=== PATIENT | female | born 1965 | race African-American/Black ===

== ENCOUNTER 2017-08-21 11:38 | Emergency (ER) | payer MEDICAID ==
[~2017-08-21] VITALS: Ht 149.9 cm; Wt 116.5 kg
[~2017-08-21 11:38] MED LIST: LISI-363 PO; METO25 PO
[2017-08-21 11:39] VITALS: BP 193/95; PULSE 84; RESP 18; TEMP 98.5; O2SAT 98
[2017-08-21] MEDS ORDERED: LOSA25TA PO (11:58)
[2017-08-21] MEDS ORDERED: METO25TA3 PO (11:58)
[2017-08-21] MEDS ORDERED: HYDR12.57 PO (11:58)
[2017-08-21 11:59] VITALS: RESP 17; O2SAT 100
[2017-08-21] MEDS ORDERED: SODIUM CHLORIDE 0.9% FLUSH 10 ML FLUSH IVF PRN (12:00)
[2017-08-21] MEDS ORDERED: ASPIRIN 81 MG CHEW TAB PO ONE (12:00)
--- NOTE | 2017-08-21 12:00 | PD ---
HPI Chief Complaint: Hypertension Time Seen by Provider: 11:50 Travel History International Travel<30 days: No Contact w/Intl Traveler<30days: No Traveled to known affect area: No History of Present Illness HPI 52-year-old female presents to emergency department complaining of high blood pressure, headache, and left shoulder discomfort and back pain since last night. Complains of midsternal chest pain occasionally that lasts about 3minutes and then goes away on its own. States she also has dizziness, described as lightheadedness that is constant. Her headache is mainly frontal. Patient has had nausea without vomiting and diarrhea. Patient denies fever, chills, shortness of breath, abdominal pain. Patient denies recent travel, immobilization, surgeries. Patient denies numbness or tingling of extremities. Patient medical history significant for hypertension and "borderline diabetes ". Patient did take her medication today which is metoprolol and losartan for blood pressure. PFSH Past Medical History Heart Rhythm Problems: No Cardiac Catheterization: No Cardiovascular Problems: No (DENIES) High Cholesterol: No Congestive Heart Failure: No Diabetes: No Diminished Hearing: No Hypertension: Yes Immunizations Current: Yes : 7 Para: 5 Miscarriage: 2 Tubal Ligation: Yes Past Surgical History Coronary Artery Bypass Graft: No Social History Alcohol Use: No Tobacco Use: No Substance Use: No Allergies-Medications (Allergen,Severity, Reaction): Coded Allergies: No Known Allergies (Verified Adverse Reaction, Unknown, 08/21/17) Reported Meds & Prescriptions Reported Meds & Active Scripts Active Zofran (Ondansetron HCl) 4 Mg Tab 4 Mg PO Q8HR PRN 7 Days Losartan (Losartan Potassium) 50 Mg Tab 50 Mg PO DAILY Reported Hydrochlorothiazide 12.5 Mg Cap 12.5 Mg PO DAILY Losartan (Losartan Potassium) 25 Mg Tab 12.5 Mg PO DAILY Metoprolol Tartrate 25 Mg Tab 25 Mg PO BID Review of Systems Except as stated in HPI: all other systems reviewed are Neg Physical Exam Narrative GENERAL: Well-developed well-nourished in mild distress SKIN: Focused skin assessment warm/dry. HEAD: Atraumatic. Normocephalic. EYES: Pupils equal and round. No scleral icterus. No injection or drainage. ENT: No nasal bleeding or discharge. Mucous membranes pink and moist. Ear canals mildly erythematous without bulging of tympanic membrane NECK: Trachea midline. No JVD. CARDIOVASCULAR: Regular rate and rhythm. No murmur appreciated. RESPIRATORY: No accessory muscle use. Clear to auscultation. Breath sounds equal bilaterally. GASTROINTESTINAL: Abdomen soft, non-tender, nondistended. Hepatic and splenic margins not palpable. Non-bounding, no masses MUSCULOSKELETAL: No obvious deformities. No clubbing. No cyanosis. No edema. No pulse deficit NEUROLOGICAL: Awake and alert. No obvious cranial nerve deficits. Motor grossly within normal limits. Normal speech. PSYCHIATRIC: Appropriate mood and affect; insight and judgment normal. Data Data Last Documented VS Vital Signs Date Time Temp Pulse Resp B/P (MAP) Pulse Ox O2 Delivery O2 Flow Rate FiO2 08/21/17 16:15 08/21/17 15:45 63 08/21/17 11:59 100 Room Air 08/21/17 11:59 17 08/21/17 11:39 98.5 Orders Orders Electrocardiogram (08/21/17 11:56) Basic Metabolic Panel (Bmp) (08/21/17 11:56) Ckmb (Isoenzyme) Profile (08/21/17 11:56) Complete Blood Count With Diff (08/21/17 11:56) Magnesium (Mg) (08/21/17 11:56) Prothrombin Time / Inr (Pt) (08/21/17 11:56) Act Partial Throm Time (Ptt) (08/21/17 11:56) Troponin I (08/21/17 11:56) Chest, Single Ap (08/21/17 11:56) Ecg Monitoring (08/21/17 11:56) Bilateral Bp Monitoring (08/21/17 11:56) Iv Access Insert/Monitor (08/21/17 11:56) Oximetry (08/21/17 11:56) Oxygen Administration (08/21/17 11:56) Aspirin Chew (Aspirin Chew) (08/21/17 12:00) Sodium Chloride 0.9% Flush (Ns Flush) (08/21/17 12:00) CKMB (08/21/17 12:00) CKMB% (08/21/17 12:00) Ondansetron Inj (Zofran Inj) (08/21/17 13:15) Clonidine (Catapres) (08/21/17 14:30) Losartan (Cozaar) (08/21/17 14:45) Ed Discharge Order (08/21/17 14:47) Ondansetron Odt (Zofran Odt) (08/21/17 16:00) Labs Laboratory Tests Test 08/21/17 12:00 White Blood Count 5.8 TH/MM3 Red Blood Count 5.08 MIL/MM3 Hemoglobin 15.2 GM/DL Hematocrit 45.4 % Mean Corpuscular Volume 89.3 FL Mean Corpuscular Hemoglobin 29.9 PG Mean Corpuscular Hemoglobin Concent 33.5 % Red Cell Distribution Width 13.5 % Platelet Count 376 TH/MM3 Mean Platelet Volume 8.5 FL Neutrophils (%) (Auto) 63.9 % Lymphocytes (%) (Auto) 25.3 % Monocytes (%) (Auto) 7.5 % Eosinophils (%) (Auto) 1.5 % Basophils (%) (Auto) 1.8 % Neutrophils # (Auto) 3.7 TH/MM3 Lymphocytes # (Auto) 1.5 TH/MM3 Monocytes # (Auto) 0.4 TH/MM3 Eosinophils # (Auto) 0.1 TH/MM3 Basophils # (Auto) 0.1 TH/MM3 CBC Comment DIFF FINAL Differential Comment Prothrombin Time 10.7 SEC Prothromb Time International Ratio 1.0 RATIO Activated Partial Thromboplast Time 31.1 SEC Blood Urea Nitrogen 13 MG/DL Creatinine 0.99 MG/DL Random Glucose 117 MG/DL Calcium Level 8.8 MG/DL Magnesium Level 2.1 MG/DL Sodium Level 138 MEQ/L Potassium Level 4.1 MEQ/L Chloride Level 105 MEQ/L Carbon Dioxide Level 25.8 MEQ/L Anion Gap 7 MEQ/L Estimat Glomerular Filtration Rate 71 ML/MIN Total Creatine Kinase 183 U/L Creatine Kinase MB 1.5 NG/ML Troponin I LESS THAN 0.02 NG/ML MDM Medical Decision Making Medical Screen Exam Complete: Yes Emergency Medical Condition: Yes Differential Diagnosis Hypertensive emergency versus hypertension versus hypertensive urgency versus upper respiratory infection Narrative Course 52-year-old female presents to emergency department complaining of high blood pressure, headache, and left shoulder discomfort and back pain since last night. Complains of midsternal chest pain occasionally that lasts about 3minutes and then goes away on its own. States she also has dizziness, described as lightheadedness that is constant. Her headache is mainly frontal. Patient has had nausea without vomiting and diarrhea. Patient denies fever, chills, shortness of breath, abdominal pain. Patient denies recent travel, immobilization, surgeries. Patient denies numbness or tingling of extremities. Patient medical history significant for hypertension and "borderline diabetes ". Patient did take her medication today. Vital signs- blood pressure elevated. Heart rate 66 Physical exam- unremarkable Chest x-ray without acute process Labs- stable. Patient given clonidine for blood pressure and Zofran for nausea. Administer losartan as well. Upon discharge patient was still concerned about a headache and dizziness that she was encountering. Patient thinks it is related to only having breakfast today. Administered orange juice. Will monitor for change. Improved at discharge. Advised to take losartan 50 mg. Will avoid doubling the metoprolol as of now to avoid a decrease in heart rate. Patient is most certain medication is no less than 25 mg. Strongly advised patient to follow up with her primary care physician. Advised to return for worsening symptoms. Diagnosis Primary Impression: Hypertension Qualified Codes: I10 - Essential (primary) hypertension Referrals: Primary Care Physician Additional Instructions: Take medication as prescribed He may use Tylenol or Motrin per package instructions Follow up with primary care physician within 3 days. Return for worsening or persistent symptoms Scripts Ondansetron (Zofran) 4 Mg Tab 4 MG PO Q8HR Y for NAUSEA OR VOMITING for 7 Days, TAB 0 Refills Prov: Ramone Deras MD 08/21/17 Losartan (Losartan) 50 Mg Tab 50 MG PO DAILY for Blood Pressure Management, #30 TAB 0 Refills Prov: Ramone Deras MD 08/21/17 Disposition: 01 DISCHARGE HOME Condition: Stable Liane Ness Aug 21, 2017 12:00
[2017-08-21 12:20] LABS: AUTOMATED NEUTROPHIL # 3.7 TH/MM3 (1.8-7.7); BASOPHIL # 0.1 TH/MM3 (0-0.2); BASOPHIL % 1.8 % (0.0-2.0); EOSINOPHIL # 0.1 TH/MM3 (0-0.4); EOSINOPHIL % 1.5 % (0.0-4.0); HEMATOCRIT 45.4 % (35.0-46.0); HEMO FLAGS DIFF FINAL; LYMPH % 25.3 % (9.0-44.0); LYMPHOCYTE # 1.5 TH/MM3 (1.0-4.8); MEAN CELL VOLUME 89.3 FL (80.0-100.0); MEAN CORPUSCULAR HEMOGLOBIN 29.9 PG (27.0-34.0); MEAN CORPUSCULAR HGB CONC 33.5 % (32.0-36.0); MONO % 7.5 % (0.0-8.0); NEUT % 63.9 % (16.0-70.0); PLATELET COUNT 376 TH/MM3 (150-450); RED BLOOD COUNT 5.08 MIL/MM3 (4.00-5.30); RED CELL DISTRIBUTION WIDTH 13.5 % (11.6-17.2); WHITE BLOOD COUNT 5.8 TH/MM3 (4.0-11.0)
--- NOTE | 2017-08-21 12:26 | RADRPT ---
EXAM DATE/TIME: 08/21/2017 12:13 [facility] COMPARISON: CHEST SINGLE AP, March 01, 2014, 17:01. INDICATIONS : Chest Pain MEDICAL HISTORY : Hypertension. SURGICAL HISTORY : None. ENCOUNTER: Initial ACUITY: 1 day PAIN SCORE: 7/10 LOCATION: Bilateral chest FINDINGS: A single view of the chest demonstrates the lungs to be symmetrically aerated without evidence of mas s, infiltrate or effusion. The cardiomediastinal contours are unremarkable. Osseous structures are intact. CONCLUSION: No evidence of acute cardiopulmonary disease. Sunday Bassett MD on August 21, 2017 at 12:24 Board Certified Radiologist. This report was verified electronically.
[2017-08-21 12:36] LABS: APTT (PATIENT) 31.1 SEC (24.3-30.1); PROTHROMBIN TIME - PATIENT 10.7 SEC (9.8-11.6)
[2017-08-21 12:51] LABS: CREATINE KINASE 183 U/L (26-192)
[2017-08-21 12:53] LABS: ANION GAP 7 MEQ/L (5-15); BICARBONATE 25.8 MEQ/L (21.0-32.0); BLOOD UREA NITROGEN 13 MG/DL (7-18); CHLORIDE 105 MEQ/L (98-107); GLOMERULAR FILTRATION RATE 71 ML/MIN (>89); MAGNESIUM 2.1 MG/DL (1.5-2.5); POTASSIUM 4.1 MEQ/L (3.5-5.1); SODIUM (NA) 138 MEQ/L (136-145)
[2017-08-21 13:03] LABS: CKMB 1.5 NG/ML (0.5-3.6)
[2017-08-21] MEDS ORDERED: ONDANSETRON HCL 4 MG/2 ML VIAL IV PUSH ONE (13:15)
[2017-08-21 14:14] VITALS: BP_SYST 206; BP_SYST 208; BP_DIAS 97
[2017-08-21] MEDS ORDERED: cloNIDine HCL 0.1 MG TAB PO ONE (14:30)
[2017-08-21] MEDS ORDERED: LOSARTAN 25 MG TAB PO ONE (14:45)
[2017-08-21] MEDS ORDERED: LOSA50TA PO (14:46)
[2017-08-21] MEDS ORDERED: ZOFR4TAB PO (14:46)
--- NOTE | 2017-08-21 14:51 | PD ---
Data Data Last Documented VS Vital Signs Date Time Temp Pulse Resp B/P (MAP) Pulse Ox O2 Delivery O2 Flow Rate FiO2 08/21/17 14:14 208/97 (134) 206/97 (133) 08/21/17 11:59 100 Room Air 08/21/17 11:59 17 08/21/17 11:39 98.5 84 Orders Orders Electrocardiogram (08/21/17 11:56) Basic Metabolic Panel (Bmp) (08/21/17 11:56) Ckmb (Isoenzyme) Profile (08/21/17 11:56) Complete Blood Count With Diff (08/21/17 11:56) Magnesium (Mg) (08/21/17 11:56) Prothrombin Time / Inr (Pt) (08/21/17 11:56) Act Partial Throm Time (Ptt) (08/21/17 11:56) Troponin I (08/21/17 11:56) Chest, Single Ap (08/21/17 11:56) Ecg Monitoring (08/21/17 11:56) Bilateral Bp Monitoring (08/21/17 11:56) Iv Access Insert/Monitor (08/21/17 11:56) Oximetry (08/21/17 11:56) Oxygen Administration (08/21/17 11:56) Aspirin Chew (Aspirin Chew) (08/21/17 12:00) Sodium Chloride 0.9% Flush (Ns Flush) (08/21/17 12:00) CKMB (08/21/17 12:00) CKMB% (08/21/17 12:00) Ondansetron Inj (Zofran Inj) (08/21/17 13:15) Clonidine (Catapres) (08/21/17 14:30) Losartan (Cozaar) (08/21/17 14:45) Ed Discharge Order (08/21/17 14:47) Labs Laboratory Tests Test 08/21/17 12:00 White Blood Count 5.8 TH/MM3 Red Blood Count 5.08 MIL/MM3 Hemoglobin 15.2 GM/DL Hematocrit 45.4 % Mean Corpuscular Volume 89.3 FL Mean Corpuscular Hemoglobin 29.9 PG Mean Corpuscular Hemoglobin Concent 33.5 % Red Cell Distribution Width 13.5 % Platelet Count 376 TH/MM3 Mean Platelet Volume 8.5 FL Neutrophils (%) (Auto) 63.9 % Lymphocytes (%) (Auto) 25.3 % Monocytes (%) (Auto) 7.5 % Eosinophils (%) (Auto) 1.5 % Basophils (%) (Auto) 1.8 % Neutrophils # (Auto) 3.7 TH/MM3 Lymphocytes # (Auto) 1.5 TH/MM3 Monocytes # (Auto) 0.4 TH/MM3 Eosinophils # (Auto) 0.1 TH/MM3 Basophils # (Auto) 0.1 TH/MM3 CBC Comment DIFF FINAL Differential Comment Prothrombin Time 10.7 SEC Prothromb Time International Ratio 1.0 RATIO Activated Partial Thromboplast Time 31.1 SEC Blood Urea Nitrogen 13 MG/DL Creatinine 0.99 MG/DL Random Glucose 117 MG/DL Calcium Level 8.8 MG/DL Magnesium Level 2.1 MG/DL Sodium Level 138 MEQ/L Potassium Level 4.1 MEQ/L Chloride Level 105 MEQ/L Carbon Dioxide Level 25.8 MEQ/L Anion Gap 7 MEQ/L Estimat Glomerular Filtration Rate 71 ML/MIN Total Creatine Kinase 183 U/L Creatine Kinase MB 1.5 NG/ML Troponin I LESS THAN 0.02 NG/ML MDM Supervised Visit with MAXIME: Yes Narrative Course The history, exam, and medical decision-making in the associated mid-level provider note were completed with my assistance. I reviewed and agree with the findings presented. I attest that I had a [id number] encounter with the patient on the same day, and personally performed and documented my assessment and findings in the medical record. *My assessment and Findings: So 52-year-old woman presents to the emergency department with elevated blood pressure with some lightheadedness and some nausea. Just a little bit of loose stools this morning. She looks well. Blood pressure is elevated in the ED. She is on several medications already. I don't see evidence of stroke or bleed. She will need better blood pressure control. We'll increase her home blood pressure medicines recommend close follow-up with her primary physician. Diagnosis Primary Impression: Hypertension Qualified Codes: I10 - Essential (primary) hypertension Referrals: Primary Care Physician Additional Instruction: Take medication as prescribed He may use Tylenol or Motrin per package instructions Follow up with primary care physician within 3 days. Return for worsening or persistent symptoms Scripts Ondansetron (Zofran) 4 Mg Tab 4 MG PO Q8HR Y for NAUSEA OR VOMITING for 7 Days, TAB 0 Refills Prov: Ramone Deras MD 08/21/17 Losartan (Losartan) 50 Mg Tab 50 MG PO DAILY for Blood Pressure Management, #30 TAB 0 Refills Prov: Ramone Deras MD 08/21/17 Disposition: 01 DISCHARGE HOME Condition: Stable Ramone Deras MD Aug 21, 2017 14:51
[2017-08-21 15:15] VITALS: BP 199/85; PULSE 62
[2017-08-21 15:45] VITALS: BP 171/81; PULSE 63
[2017-08-21] MEDS ORDERED: ONDANSETRON ODT 4 MG TAB PO ONE (16:00)
--- NOTE | 2017-08-22 16:11 | EKG ---
Date Performed: 08/21/2017 Time Performed: 12:01:51 PTAGE: 52 years EKG: Sinus rhythm Compared to prior tracing no significant change NORMAL ECG PREVIOUS TRACING : 03/02/14 @ 0111 DOCTOR: Robi Romo Interpretating Date/Time 08/22/2017 16:10:20
== END 2017-08-21 16:20 | disposition home or self-care (01) ==
LOC: NEPE 11:38
DX: I10 Essential (primary) hypertension (principal); R42 Dizziness and giddiness; R11.0 Nausea; R19.7 Diarrhea, unspecified; R51 Headache
CPT/HCPCS: 71010; 80048; 82550; 82552; 83735; 84484; 85025; 85610; 85730; 93005; 96374; 99285; J2405